=== PATIENT | female | born 1985 | race American Indian/Alaskan Native ===

== ENCOUNTER 2021-01-29 18:17 | Emergency (ER) | payer MEDICAID ==
[2021-01-29 18:40] VITALS: BP 124/78
[2021-01-29 18:51] LABS: Basophils # (Auto) 0.1 K/mm3 (0.0-0.1); Eosinophils # (Auto) 0.1 K/mm3 (0.0-0.4); Hematocrit 34.6 % (30.3-42.9); Lymphocytes % (Auto) 25.7 % (13.4-35.0); Mean Corpuscular HGB Conc 35 % (30-34); Mean Corpuscular Volume 91 fl (79-97); Monocytes # (Auto) 0.6 K/mm3 (0.0-0.8); Monocytes % (Auto) 8.3 % (0.0-7.3); Platelet Count 262 K/mm3 (140-440); Red Blood Count 3.79 M/mm3 (3.65-5.03); Red Cell Distribution Width 14.3 % (13.2-15.2)
[2021-01-29 19:09] LABS: Alanine Aminotransferase 10 units/L (7-56); Albumin 4.1 g/dL (3.9-5); Blood Urea Nitrogen 9 mg/dL (7-17); Calcium 8.6 mg/dL (8.4-10.2); Hemolysis Index 7
[2021-01-29 19:13] LABS: BUN/Creatinine Ratio 13
[2021-01-29 19:23] LABS: Bilirubin,Urine NEG (Negative); Blood,Urine NEG (Negative); Color,Urine Yellow (Yellow); Mucus,Urine 3+ /HPF; Protein,Urine <15 mg/dL mg/dL (Negative)
[2021-01-29] MEDS ORDERED: KETOROLAC 60 MG/2 ML INJ IM ONE (21:35)
[2021-01-29] MEDS ORDERED: DICYCLOMINE 20 MG/2 ML INJ IM ONE (21:35)
--- NOTE | 2021-01-29 22:43 | XRay Report ---
ABDOMEN 4 VIEW(S) INDICATION / CLINICAL INFORMATION: abd cramping. COMPARISON: None available. FINDINGS: TUBES / LINES: None. BOWEL GAS PATTERN: No significant abnormality. FREE AIR / EXTRALUMINAL GAS: None seen. ADDITIONAL FINDINGS: Clear lungs with normal heart size. IMPRESSION: 1. No significant abnormality. Signer Name: Adalid Jaimes MD Signed: 01/29/2021 10:39 PM Workstation Name: [id number]
--- NOTE | 2021-01-29 22:59 | Emergency Department Report ---
ED Abdominal Pain HPI - General Chief Complaint: Abdominal Pain Stated Complaint: ABDOMINAL PAIN Time Seen by Provider: 01/29/21 21:31 Source: patient Mode of arrival: Ambulatory Limitations: No Limitations - History of Present Illness Initial Comments: Patient is a 35-year-old F Chinese female who is complaining of some abdominal discomfort for the past 2 to 3 days. States the pain is a crampy sensation there is been off and on consistently throughout the last several days. Generalized. States there is no nausea vomiting diarrhea fevers chills cough cold or congestion. States the pain is estimated 5 out of 10 in severity. Denies any dysuria or abnormal vaginal bleeding. States it feels somewhat like a menses type cramps but she is not currently on her menses. Severity scale (0 -10): 6 - Related Data Previous Rx's Medication Instructions Recorded Last Taken Type Dicyclomine [Bentyl] 20 mg PO QID #10 tablet 01/29/21 Unknown Rx Famotidine [Pepcid] 40 mg PO QHS #10 tablet 01/29/21 Unknown Rx Ketorolac [Toradol] 10 mg PO Q6H PRN #12 tablet 01/29/21 Unknown Rx Allergies Allergy/AdvReac Type Severity Reaction Status Date / Time No Known Allergies Allergy Verified 01/29/21 18:23 ED Review of Systems ROS: Stated complaint: ABDOMINAL PAIN Other details as noted in HPI Comment: All other systems reviewed and negative ED Past Medical Hx - Medications Home Medications: Home Medications Medication Instructions Recorded Confirmed Last Taken Type Dicyclomine [Bentyl] 20 mg PO QID #10 tablet 01/29/21 Unknown Rx Famotidine [Pepcid] 40 mg PO QHS #10 tablet 01/29/21 Unknown Rx Ketorolac [Toradol] 10 mg PO Q6H PRN #12 tablet 01/29/21 Unknown Rx ED Physical Exam - General Limitations: No Limitations General appearance: alert, in no apparent distress - Head Head exam: Present: atraumatic, normocephalic - Eye Eye exam: Present: normal appearance - ENT ENT exam: Present: mucous membranes moist - Neck Neck exam: Present: normal inspection - Respiratory Respiratory exam: Present: normal lung sounds bilaterally. Absent: respiratory distress, wheezes, rales, rhonchi - Cardiovascular Cardiovascular Exam: Present: regular rate, normal rhythm, normal heart sounds. Absent: systolic murmur, diastolic murmur, rubs, gallop - GI/Abdominal GI/Abdominal exam: Present: soft, normal bowel sounds, hyperactive bowel sounds. Absent: distended, tenderness, guarding, rebound, rigid - Extremities Exam Extremities exam: Present: normal inspection - Back Exam Back exam: Present: normal inspection - Neurological Exam Neurological exam: Present: alert, oriented X3 - Psychiatric Psychiatric exam: Present: normal affect, normal mood - Skin Skin exam: Present: warm, dry, intact, normal color. Absent: rash ED Course Vital Signs 01/29/21 18:24 Temperature 98.9 F Pulse Rate 95 H Respiratory 16 Rate Blood Pressure 124/78 O2 Sat by Pulse 98 Oximetry ED Medical Decision Making - Lab Data Result diagrams: 01/29/21 18:33 01/29/21 18:33 Lab Results 01/29/21 01/29/21 01/29/21 Range/Units 18:31 18:33 18:33 WBC 7.8 (4.5-11.0) K/mm3 RBC 3.79 (3.65-5.03) M/mm3 Hgb 12.0 (10.1-14.3) gm/dl Hct 34.6 (30.3-42.9) % MCV 91 (79-97) fl MCH 32 (28-32) pg MCHC 35 H (30-34) % RDW 14.3 (13.2-15.2) % Plt Count 262 (140-440) K/mm3 Lymph % (Auto) 25.7 (13.4-35.0) % Mayes % (Auto) 8.3 H (0.0-7.3) % Eos % (Auto) 1.0 (0.0-4.3) % Baso % (Auto) 1.0 (0.0-1.8) % Lymph # (Auto) 2.0 (1.2-5.4) K/mm3 Mayes # (Auto) 0.6 (0.0-0.8) K/mm3 Eos # (Auto) 0.1 (0.0-0.4) K/mm3 Baso # (Auto) 0.1 (0.0-0.1) K/mm3 Seg Neutrophils % 64.0 (40.0-70.0) % Seg Neutrophils # 5.0 (1.8-7.7) K/mm3 Sodium 135 L (137-145) mmol/L Potassium 3.7 (3.6-5.0) mmol/L Chloride 100.3 (98-107) mmol/L Carbon Dioxide 24 (22-30) mmol/L Anion Gap 14 mmol/L BUN 9 (7-17) mg/dL Creatinine 0.7 (0.6-1.2) mg/dL Estimated GFR > 60 ml/min BUN/Creatinine Ratio 13 % Glucose 93 (65-100) mg/dL Calcium 8.6 (8.4-10.2) mg/dL Total Bilirubin 0.40 (0.1-1.2) mg/dL AST 14 (5-40) units/L ALT 10 (7-56) units/L Alkaline Phosphatase 59 (35-129) units/L Total Protein 7.1 (6.3-8.2) g/dL Albumin 4.1 (3.9-5) g/dL Albumin/Globulin Ratio 1.4 % Lipase 16 (13-60) units/L HCG, Qual (Negative) Urine Color Yellow (Yellow) Urine Turbidity Slightly-cloudy (Clear) Urine pH 5.0 (5.0-7.0) Ur Specific [place] 1.027 (1.003-1.030) Urine Protein <15 mg/dl (Negative) mg/dL Urine Glucose (UA) Neg (Negative) mg/dL Urine Ketones Neg (Negative) mg/dL Urine Blood Neg (Negative) Urine Nitrite Neg (Negative) Urine Bilirubin Neg (Negative) Urine Urobilinogen 2.0 (<2.0) mg/dL Ur Leukocyte Esterase Neg (Negative) Urine WBC (Auto) 1.0 (0.0-6.0) /HPF Urine RBC (Auto) 2.0 (0.0-6.0) /HPF U Epithel Cells (Auto) 11.0 (0-13.0) /HPF Urine Mucus 3+ /HPF 01/29/21 Range/Units 21:39 WBC (4.5-11.0) K/mm3 RBC (3.65-5.03) M/mm3 Hgb (10.1-14.3) gm/dl Hct (30.3-42.9) % MCV (79-97) fl MCH (28-32) pg MCHC (30-34) % RDW (13.2-15.2) % Plt Count (140-440) K/mm3 Lymph % (Auto) (13.4-35.0) % Mayes % (Auto) (0.0-7.3) % Eos % (Auto) (0.0-4.3) % Baso % (Auto) (0.0-1.8) % Lymph # (Auto) (1.2-5.4) K/mm3 Mayes # (Auto) (0.0-0.8) K/mm3 Eos # (Auto) (0.0-0.4) K/mm3 Baso # (Auto) (0.0-0.1) K/mm3 Seg Neutrophils % (40.0-70.0) % Seg Neutrophils # (1.8-7.7) K/mm3 Sodium (137-145) mmol/L Potassium (3.6-5.0) mmol/L Chloride (98-107) mmol/L Carbon Dioxide (22-30) mmol/L Anion Gap mmol/L BUN (7-17) mg/dL Creatinine (0.6-1.2) mg/dL Estimated GFR ml/min BUN/Creatinine Ratio % Glucose (65-100) mg/dL Calcium (8.4-10.2) mg/dL Total Bilirubin (0.1-1.2) mg/dL AST (5-40) units/L ALT (7-56) units/L Alkaline Phosphatase (35-129) units/L Total Protein (6.3-8.2) g/dL Albumin (3.9-5) g/dL Albumin/Globulin Ratio % Lipase (13-60) units/L HCG, Qual Negative (Negative) Urine Color (Yellow) Urine Turbidity (Clear) Urine pH (5.0-7.0) Ur Specific [place] (1.003-1.030) Urine Protein (Negative) mg/dL Urine Glucose (UA) (Negative) mg/dL Urine Ketones (Negative) mg/dL Urine Blood (Negative) Urine Nitrite (Negative) Urine Bilirubin (Negative) Urine Urobilinogen (<2.0) mg/dL Ur Leukocyte Esterase (Negative) Urine WBC (Auto) (0.0-6.0) /HPF Urine RBC (Auto) (0.0-6.0) /HPF U Epithel Cells (Auto) (0-13.0) /HPF Urine Mucus /HPF - Radiology Data [facility] [address] [place] [address] XRay Report Signed Patient: SUSAN FRANKLIN MR#: [id number] : 1985 Acct:[id number] Age/Sex: 35 / F ADM Date: 01/29/21 Loc: ED Attending Dr: Ordering Physician: ALVINO WHALEY MD Date of Service: 01/29/21 Procedure(s): XR abd series w cxr 1V Accession Number(s): [id number] cc: ALVINO WHALEY MD Fluoro Time In Minutes: ABDOMEN 4 VIEW(S) INDICATION / CLINICAL INFORMATION: abd cramping. COMPARISON: None available. FINDINGS: TUBES / LINES: None. BOWEL GAS PATTERN: No significant abnormality. FREE AIR / EXTRALUMINAL GAS: None seen. ADDITIONAL FINDINGS: Clear lungs with normal heart size. IMPRESSION: 1. No significant abnormality. Signer Name: Adalid Jaimes MD Signed: 01/29/2021 10:39 PM Workstation Name: [id number] - Medical Decision Making Laboratory studies within normal limits. Patient's x-ray shows several pockets of air but no evidence of air-fluid levels or obstruction. Patient may have eaten something which irritated the GI tract. No obvious signs of acute abdomen found. Patient given medication for symptomatic relief and be discharged home. Critical care attestation.: If time is entered above; I have spent that time in minutes in the direct care of this critically ill patient, excluding procedure time. ED Disposition Clinical Impression: Abdominal pain, Abdominal gas pain Disposition: - TO HOME OR SELFCARE Is pt being admited?: No Does the pt Need Aspirin: No Condition: Stable Instructions: Abdominal Pain (ED), Abdominal Pain, Adult, [id number] Referrals: PRIMARY CAREMD [Primary Care Provider] - 3-5 Days Time of Disposition: 23:00
== END 2021-01-29 23:13 | disposition home or self-care (01) ==
LOC: EDBD → ED 18:17
DX: R14.1 Gas pain (principal); R11.2 Nausea with vomiting, unspecified; R19.7 Diarrhea, unspecified; R10.84 Generalized abdominal pain
CPT/HCPCS: 36415; 74022; 80053; 81001; 83690; 84703; 85025; 96372; 99283; J0500; J1885